=== PATIENT | female | born 1960 | race Caucasian/White ===

== ENCOUNTER → 2020-11-01 | Day surgery (SDC) | payer OTHER | END | disposition home or self-care (01) | LOC: FMAMMOTONE 08:16 | PROVIDERS: ATTEND Family Medicine | PROC: 0H9U3ZX Drainage of Left Breast, Percutaneous Approach, Diagnostic (ICD-10-PCS; principal; 2020-11-01) | DX: R92.0 Mammographic microcalcification found on diagnostic imaging of breast (principal); Z53.8 Procedure and treatment not carried out for other reasons | CPT/HCPCS: 19081 ==

== ENCOUNTER 2021-01-22 04:51 | Day surgery (SDC) | payer OTHER ==
[2021-01-22] MEDS ORDERED: LIDOCAINE HCL 1%, 10 MG/ML (20ML VIAL) ONE (13:02)
[2021-01-22] MEDS ORDERED: ISOSULFAN BLUE 50 MG/5 ML VIAL SQ ONE (13:36)
[2021-01-22] MEDS ORDERED: MIDAZOLAM HCL 2 MG/2 ML SINGLE DOSE VIAL ONE (13:47)
[2021-01-22] MEDS ORDERED: PROPOFOL 20 ML ONE ×2 (13:47→14:13)
[2021-01-22] MEDS ORDERED: ceFAZolin SODIUM 1 GM VIAL IVPB ONE (14:02)
[2021-01-22] MEDS ORDERED: ceFAZolin SODIUM 1 GM VIAL ONE (14:03)
[2021-01-22] MEDS ORDERED: LIDOCAINE HCL 1%, 10 MG/ML (20ML VIAL) NR ONE (14:19)
[2021-01-22] MEDS ORDERED: oxyCODONE HCL 5 MG TABLET PO PRN (14:41)
[2021-01-22] MEDS ORDERED: ONDANSETRON 4 MG/2 ML VIAL IVPUSH PRN (14:41)
[2021-01-22] MEDS ORDERED: PROMETHAZINE HCL 25 MG/1 ML VIAL IVPUSH PRN (14:41)
[2021-01-22] MEDS ORDERED: oxyCODONE HCL 10 MG SUSTAINED ACTING TABLET ONE (17:15)
[2021-01-22 18:05] VITALS: BP 157/68; PULSE 68; TEMP 97.4
== END 2021-01-22 17:40 | disposition home or self-care (01) ==
LOC: JASU-SURG 04:51
PROVIDERS: ATTEND Surgery
PROC: 0HBU0ZZ Excision of Left Breast, Open Approach (ICD-10-PCS; principal; 2021-01-22 14:19)
DX: N60.92 Unspecified benign mammary dysplasia of left breast (principal); D24.2 Benign neoplasm of left breast; E11.9 Type 2 diabetes mellitus without complications
CPT/HCPCS: 19281; 76098-TC-FY; 88307-TC; 88342-TC; 94760

== ENCOUNTER → 2021-09-23 | Day surgery (SDC) | payer OTHER | END | disposition home or self-care (01) | LOC: FMAMMOTONE 10:38 | PROVIDERS: ATTEND Surgery | PROC: 0HBT3ZX Excision of Right Breast, Percutaneous Approach, Diagnostic (ICD-10-PCS; principal; 2021-09-23) | DX: D24.1 Benign neoplasm of right breast (principal); N60.31 Fibrosclerosis of right breast; N64.89 Other specified disorders of breast; R92.8 Other abnormal and inconclusive findings on diagnostic imaging of breast | CPT/HCPCS: 19081; 76098-TC-FY; 87899; 88305-TC; A4648 ==

== ENCOUNTER 2022-06-26 12:13 | Observation (INO) | payer OTHER ==
[2022-06-26 12:26] VITALS: BMI 26.5
[2022-06-26 14:12] LABS: BASO % 0.5 % (0-2.0); EOS % 0.8 % (0-4.5); HEMATOCRIT 37.8 % (32.4-45.2); HEMOGLOBIN 12.8 GM/dL (10.7-15.3); MCH 29.6 pg (25.7-33.7); MCHC 33.9 g/dl (32.0-36.0); MEAN CELL VOLUME 87.4 fl (80-96); MEAN PLT VOLUME 8.6 fl (7.5-11.1); NEUT % 67.7 % (42.8-82.8); PLATELET COUNT 295 10^3/uL (134-434); RBC 4.32 M/mm3 (3.60-5.2); RDW 12.6 % (11.6-15.6); WHITE BLOOD COUNT 9.7 K/mm3 (4.0-10.0)
[2022-06-26 14:13] LABS: VENOUS BASE EXCESS 0.5 mmol/L (-2-2); VENOUS O2 SATURATION 85.5 % (70-80); VENOUS PCO2 44.6 mmHg (38-52); VENOUS PH 7.382 (7.310-7.410)
[2022-06-26 14:44] LABS: CALCIUM 9.6 mg/dL (8.5-10.1)
[2022-06-26 14:45] LABS: ALBUMIN 4.1 g/dl (3.4-5.0); BLOOD UREA NITROGEN 18.7 mg/dL (7-18)
[2022-06-26 14:48] LABS: CREATININE 0.8 mg/dL (0.55-1.3)
[2022-06-26 14:50] LABS: BILIRUBIN,TOTAL 0.3 mg/dL (0.2-1); TOT PROT 7.4 g/dl (6.4-8.2)
[2022-06-26 14:50] LABS: EPI CELLS 7 /uL (0-25.1); HYALINE CASTS 0 /uL (0-3.1); URINE APPEARANCE CLEAR; URINE BACTERIA 48 /uL (0-1359); URINE BILIRUBIN NEGATIVE (NEGATIVE); URINE COLOR YELLOW; URINE GLUCOSE (UA) 3+ (NEGATIVE); URINE KETONE TRACE (NEGATIVE); URINE LEUK ESTERASE NEGATIVE (NEGATIVE); URINE NITRITE NEGATIVE (NEGATIVE); URINE PROTEIN 1+ (NEGATIVE); URINE RBC 8 /uL (0-23.9); URINE UROBILINOGEN 0.2 mg/dL (0.2-1.0); URINE WBC 3 /uL (0-25.8)
[2022-06-26] MEDS ORDERED: LOSARTAN POTASSIUM 50 MG TABLET PO ONE (17:10)
[2022-06-26] MEDS ORDERED: LOSARTAN POTASSIUM 50 MG TABLET ONE (18:17)
[2022-06-26] MEDS ORDERED: MECLIZINE HCL 25 MG TABLET (FP) PO PRN (19:17)
[2022-06-26] MEDS ORDERED: SERTRALINE HCL 50 MG TABLET (FP) ONE (21:56)
[2022-06-26] MEDS ORDERED: ATORVASTATIN CA 20 MG TABLET (FP) ONE (21:56)
[2022-06-26] MEDS ORDERED: ATORVASTATIN CA 20 MG TABLET (FP) PO SCH (22:00)
[2022-06-26] MEDS ORDERED: QUEtiapine FUMARATE 50 MG TABLET PO SCH (22:00)
[2022-06-26] MEDS: INSULIN SLIDING SCALE (NOVOLOG) 1 VIAL SQ SCH (22:03)
[2022-06-26] MEDS: RIVASTIGMINE TARTRATE 1.5 MG CAPSULE PO SCH (22:13)
[2022-06-26] MEDS ORDERED: SODIUM CHLORIDE 500 ML IV STA (22:26)
[2022-06-27 07:36] LABS: BASO % 0.7 % (0-2.0); EOS % 2.2 % (0-4.5); HEMOGLOBIN 11.7 GM/dL (10.7-15.3); LYMPH % 46.6 % (8-40); MCH 29.5 pg (25.7-33.7); MCHC 33.5 g/dl (32.0-36.0); MEAN PLT VOLUME 8.9 fl (7.5-11.1); MONO % 5.2 % (3.8-10.2); NEUT % 45.3 % (42.8-82.8); PLATELET COUNT 261 10^3/uL (134-434); RBC 3.98 M/mm3 (3.60-5.2); RDW 12.9 % (11.6-15.6); WHITE BLOOD COUNT 7.1 K/mm3 (4.0-10.0)
[2022-06-27] MEDS ORDERED: SODIUM CHLORIDE 1,000 ML IV SCH (07:45)
[2022-06-27 07:57] LABS: CALCIUM 8.8 mg/dL (8.5-10.1)
[2022-06-27 07:58] LABS: ALBUMIN 3.3 g/dl (3.4-5.0); BLOOD UREA NITROGEN 27.5 mg/dL (7-18); CHOLESTEROL 144 mg/dL (50-200)
[2022-06-27 07:59] LABS: TRIGLYCERIDES 140 mg/dL (0-150)
[2022-06-27 08:00] LABS: LDL CHOLESTEROL (ONLY SJRH) 89 mg/dL (5-100); PHOSPHOROUS 3.9 mg/dL (2.5-4.9)
[2022-06-27 08:01] LABS: CREATININE 0.9 mg/dL (0.55-1.3)
[2022-06-27 08:02] LABS: BILIRUBIN,TOTAL 0.4 mg/dL (0.2-1); HDL CHOLESTEROL 38 mg/dL (40-60); TOT PROT 6.1 g/dl (6.4-8.2)
[2022-06-27] MEDS: INSULIN SLIDING SCALE (NOVOLOG) 1 VIAL SQ SCH ×3 (08:33→16:56)
[2022-06-27] MEDS ORDERED: metoPROLOL SUCCINATE 25 MG TAB.SR.24H (FP) PO SCH (10:00)
[2022-06-27] MEDS ORDERED: CLOPIDOGREL BISULFATE 75 MG TABLET (FP) PO SCH (10:00)
[2022-06-27] MEDS ORDERED: ENOXAPARIN NA (PORCINE) 40 MG/0.4 ML DISP.SYRIN SQ SCH (10:00)
[2022-06-27] MEDS ORDERED: EZETIMIBE 10 MG TABLET (FP) PO SCH (10:00)
[2022-06-27] MEDS ORDERED: LOSARTAN POTASSIUM 50 MG TABLET PO SCH (10:00)
[2022-06-27] MEDS ORDERED: ENOXAPARIN NA (PORCINE) 40 MG/0.4 ML DISP.SYRIN SQ ONE (10:42)
[2022-06-27] MEDS: RIVASTIGMINE TARTRATE 1.5 MG CAPSULE PO SCH (11:30)
[2022-06-27 14:04] VITALS: RESP 18
[2022-06-27 16:01] VITALS: BP 125/70; PULSE 49; TEMP 99
[2022-06-28] MEDS ORDERED: PATIENT'S OWN MEDICATION (NON-FORMULARY) (Raloxifene Hcl [Raloxifene Hcl] 60 MG Tablet) PO SCH (10:00)
== END 2022-06-27 17:44 | disposition home or self-care (01) ==
LOC: JER 12:13 → JERBED 13:53 → J4W 06-27 14:56
PROVIDERS: ADMIT Family Medicine; ATTEND Internal Medicine
PROC: 3E023GC Introduction of Other Therapeutic Substance into Muscle, Percutaneous Approach (ICD-10-PCS; principal; 2022-06-26)
PROC: 3E0337Z Introduction of Electrolytic and Water Balance Substance into Peripheral Vein, Percutaneous Approach (ICD-10-PCS; 2022-06-26)
DX: I16.0 Hypertensive urgency (principal); E11.9 Type 2 diabetes mellitus without complications; R01.1 Cardiac murmur, unspecified; R07.9 Chest pain, unspecified; R42 Dizziness and giddiness; R79.89 Other specified abnormal findings of blood chemistry; Z88.8 Allergy status to other drugs, medicaments and biological substances; Z87.891 Personal history of nicotine dependence
CPT/HCPCS: 36415; 71045-TC-FY; 80053; 80061; 81003; 82803; 82962; 83036; 83735; 84100; 84443; 84484; 85025; 87086; 93005; 93010; 96360; 96361; 96372; 99285-25; C9803-CS; G0378; U0003; U0005